=== PATIENT | female | born 1945 | race Caucasian/White ===

== ENCOUNTER 2022-03-28 05:30 | Observation (INO) ==
[2022-03-29] MEDS ORDERED: 0.9 % Sodium Chloride 1,000 ML ONE (01:13)
[2022-03-29] MEDS ORDERED: Ondansetron 4 MG/2 ML VIAL IVP PRN (05:57)
[2022-03-29] MEDS ORDERED: Melatonin 3 MG TABLET PO PRN (06:01)
[2022-03-29 06:14] LABS: Basophils % 0.5 %; Eosinophils # 0.1 K/mcL (0.0-0.6); Eosinophils % 1.4 %; Hematocrit 39.8 % (35.3-44.9); Immature Granulocytes % 0.2 % (0-4); Lymphocytes # 3.2 K/mcL (0.6-4.6); Lymphocytes % 49.2 %; Mean Corpuscular HGB Conc 35.2 g/dL (31.6-35.5); Mean Corpuscular Hemoglobin 29.9 pg (28.0-33.3); Mean Corpuscular Volume 84.9 fL (83.0-100.0); Monocytes # 0.6 K/mcL (0.0-1.3); Monocytes % 9.5 %; Neutrophils # 2.6 K/mcL (1.6-8.9); Platelet Count 178 K/mcL (140-400); Red Blood Count 4.69 M/mcL (3.82-4.97); Red Cell Distribution Width 11.9 % (11.5-14.5); Segmented Neutrophils % 39.2 %; White Blood Count 6.6 K/mcL (4.3-11.1)
[2022-03-29] MEDS ORDERED: 0.9 % Sodium Chloride 1,000 ML IVC SCH (06:15)
[2022-03-29 06:32] LABS: Alanine Aminotransferase 13 Units/L (7-52); Albumin 3.9 g/dL (3.5-5.7); Albumin/Globulin Ratio 1.7 (1.1-2.2); Alkaline Phosphatase 54 Units/L (34-104); Aspartate Amino Transferase 18 Units/L (13-39); BUN/Creatinine Ratio 11 (6-26); Bilirubin,Total 0.6 mg/dL (0.3-1.0); Blood Urea Nitrogen 6 mg/dL (8-23); Calcium 8.3 mg/dL (8.6-10.3); Carbon Dioxide 24 mEq/L (23-29); Chloride 97 mEq/L (98-107); Globulin 2.3 g/dL (2.4-3.5); Glucose 106 mg/dL (70-105); Osmolality,Calculated 262 (280-300); Sodium 127 mEq/L (136-145); Total Protein 6.2 g/dL (6.4-8.9)
[2022-03-29] MEDS ORDERED: Saline Nasal Spray 44 ML BOTTLE NS PRN (06:34)
[2022-03-29] MEDS ORDERED: Saliva Stimulant 44.3ml BOTTLE PO PRN (06:34)
[2022-03-29] MEDS ORDERED: *HR* Dextrose 50 % in Water (Syg) 50 ML SYRINGE IVP PRN (06:36)
[2022-03-29] MEDS ORDERED: D5% in Water 1,000 ML IVC PRN (06:36)
[2022-03-29] MEDS ORDERED: Dextrose Gel 15 GM/37.5 ML TUBE PO PRN ×2 (06:36)
[2022-03-29 06:51] LABS: Lactate Dehydrogenase 195 Units/L (140-271)
[2022-03-29 07:09] LABS: Ferritin 133 ng/mL (10-120)
[2022-03-29] MEDS: *HR* Heparin 5,000 UNIT/ML VIAL SQ SCH ×3 (07:55→22:12)
[2022-03-29] MEDS ORDERED: Ipratropium/Albuterol Neb 3 ML IH SCH (08:00)
[2022-03-29 08:49] LABS: Magnesium 1.8 mg/dL (1.6-2.6)
[2022-03-29] MEDS ORDERED: Ipratropium 1 PUFF INHALER IH SCH (10:00)
[2022-03-29 11:15] LABS: Activated Partial Thrombo Time 31.7 Seconds (26.0-36.0); INR 1.1
[2022-03-29] MEDS: Chlorhexidine Rinse 15 ML MOUTHWASH MM SCH ×2 (11:52→22:12)
[2022-03-29 11:53] LABS: C-Reactive Protein < 5 mg/L (Less than 10)
[2022-03-29] MEDS: Multivit/Ca/Min/Fe/FA 1 TAB TABLET PO SCH (11:53)
[2022-03-29] MEDS: Artificial Tears SOLN 15 ML BOTTLE BOTH EYES SCH ×2 (11:54→22:12)
[2022-03-29 12:35] LABS: Bilirubin,Urine Negative (Negative); Blood,Urine Negative (Negative); Clarity,Urine Clear (Clear); Color,Urine Colorless (Yellow); Glucose,Urine (UA) Normal (Normal); Ketones,Urine Negative (Negative); Leukocyte Esterase,Urine Moderate (Negative); Mucus,Urine Few per lpf (None-Few); Nitrite,Urine Negative (Negative); PH,Urine 6.5 pH Units (5.0-8.0); Protein,Urine Negative (Neg-Trace); RBC,Urine 0-3 per hpf (0-3); Specific Gravity,Urine 1.006 (1.010-1.025); Squamous Epithelial Cell,Urine Few per hpf (None-Few); Urobilinogen,Urine Normal (Normal)
[2022-03-29 13:10] LABS: Creatinine,Urine 26 mg/dL; Microalbumin,Urine < 7 mg/L; Sodium, Urine 66.7 mEq/L
[2022-03-29 16:27] LABS: BUN/Creatinine Ratio 18 (6-26); Blood Urea Nitrogen 11 mg/dL (8-23); Calcium 8.7 mg/dL (8.6-10.3); Carbon Dioxide 27 mEq/L (23-29); Chloride 98 mEq/L (98-107); Glucose 123 mg/dL (70-105); Osmolality,Calculated 273 (280-300); Potassium 4.2 mEq/L (3.5-5.1); Sodium 131 mEq/L (136-145)
[2022-03-29 20:54] LABS: BUN/Creatinine Ratio 24 (6-26); Blood Urea Nitrogen 15 mg/dL (8-23); Calcium 8.6 mg/dL (8.6-10.3); Carbon Dioxide 24 mEq/L (23-29); Chloride 97 mEq/L (98-107); Glucose 172 mg/dL (70-105); Osmolality,Calculated 271 (280-300); Potassium 3.9 mEq/L (3.5-5.1); Sodium 128 mEq/L (136-145)
[2022-03-29] MEDS: Acetaminophen 325 MG TABLET PO PRN (22:13)
[2022-03-30] MEDS: *HR* Heparin 5,000 UNIT/ML VIAL SQ SCH ×2 (05:18→14:53)
[2022-03-30 06:10] LABS: BUN/Creatinine Ratio 17 (6-26); Blood Urea Nitrogen 10 mg/dL (8-23); Carbon Dioxide 27 mEq/L (23-29); Chloride 97 mEq/L (98-107); Glucose 140 mg/dL (70-105); Osmolality,Calculated 271 (280-300); Potassium 4.3 mEq/L (3.5-5.1); Sodium 130 mEq/L (136-145)
[2022-03-30] MEDS: Chlorhexidine Rinse 15 ML MOUTHWASH MM SCH (09:05)
[2022-03-30] MEDS: Multivit/Ca/Min/Fe/FA 1 TAB TABLET PO SCH (09:07)
[2022-03-30] MEDS: Artificial Tears SOLN 15 ML BOTTLE BOTH EYES SCH (09:09)
[2022-03-30] MEDS: Acetaminophen 325 MG TABLET PO PRN (09:53)
[2022-03-30 13:01] VITALS: BP 122/71; PULSE 69; TEMP 98.3; O2SAT 94
== END 2022-03-30 15:30 | disposition home or self-care (01) ==
LOC: 2ANU → SUATTDRO 03-29 00:42
PROVIDERS: ADMIT Internal Medicine; ATTEND Internal Medicine